=== PATIENT | male | born 1950 | race Caucasian/White ===

== ENCOUNTER 2019-07-03 07:42 | Day surgery (SDC) | payer OTHER, BC ==
[2019-07-02 13:57] VITALS: BMI 32.1
[2019-07-03 08:20] VITALS: TEMP 97.8
[2019-07-03] MEDS ORDERED: ceFAZolin SODIUM 1 GM VIAL ONE (08:28)
[2019-07-03 09:56] VITALS: BP 126/54; PULSE 63
--- NOTE | 2019-07-08 08:53 | PATH ---
Surgical Pathology Report Patient Name: ADAN DEVINE [facility]. Rec. #: [id number] /Age/Gender: 1950 (Age: 68) / M Account: [id number] Location: [facility]-ENDOSCOPY Taken: 07/03/2019 Received: 07/03/2019 Reported: 07/08/2019 Physicians: Anthony Degroot M.D. Specimen(s) Received A: POLYP RIGHT COLON B: POLYP CECUM C: POLYP DISTAL TRANSVERSE COLON Clinical History Colon polyps Final Diagnosis A. COLON, RIGHT, POLYP, POLYPECTOMY: TUBULAR ADENOMA. B. CECUM, POLYP, POLYPECTOMY: TUBULAR ADENOMA. C. DISTAL TRANSVERSE COLON, POLYP, POLYPECTOMY: POLYPOID COLONIC MUCOSA WITH MILD SUPERFICIAL HYPERPLASTIC FEATURES. Electronically Signed Jacklyn Lawton M.D. Gross Description A. Received in formalin, labeled "polyp right colon" are 3 pruitt, irregular portions of soft tissue measuring 0.2 to 0.3 cm. in greatest dimension. The specimens are submitted in toto in one cassette. B. Received in formalin, labeled "polyp cecum" is a pruitt, irregular portion of soft tissue measuring 0.2 cm. in greatest dimension. The specimens are submitted in toto in one cassette. C. Received in formalin, labeled "polyp distal transverse colon" are 2 pruitt, irregular portions of soft tissue measuring 0.3 cm. in greatest dimension. The specimens are submitted in toto in one cassette. MALGORZATA/07/03/2019 nader/07/03/2019
== END 2019-07-03 10:00 | disposition home or self-care (01) ==
LOC: JASU-ENDO 07:42
PROVIDERS: ATTEND Internal Medicine Gastroenterology
PROC: 0DBH8ZX Excision of Cecum, Via Natural or Artificial Opening Endoscopic, Diagnostic (ICD-10-PCS; 2019-07-03)
PROC: 0DBL8ZX Excision of Transverse Colon, Via Natural or Artificial Opening Endoscopic, Diagnostic (ICD-10-PCS; 2019-07-03)
PROC: 0DBK8ZX Excision of Ascending Colon, Via Natural or Artificial Opening Endoscopic, Diagnostic (ICD-10-PCS; principal; 2019-07-03 08:45)
DX: Z86.010 Personal history of colon polyps (principal); D12.0 Benign neoplasm of cecum; D12.2 Benign neoplasm of ascending colon; D12.3 Benign neoplasm of transverse colon
CPT/HCPCS: 82962; 88305-TC